=== PATIENT | female | born 1990 | race Two or more races ===

== ENCOUNTER 2023-04-25 19:08 | Emergency (ER) | payer MEDICAID ==
[~2023-04-25] VITALS: Ht 167.6 cm; Wt 90.5 kg
[2023-04-25 19:24] VITALS: BP 139/77; PULSE 58; RESP 14; TEMP 98; O2SAT 98
[2023-04-25] MEDS: LIDOCAINE 1% HCL (LOCAL ANESTH.) INJ 20ML MDV IJ ONE (22:00)
[2023-04-25] MEDS: TETANUS-DIPTH-ACEL PERTUSSIS 0.5ML SYR Tdap IM ONE (23:01)
== END 2023-04-25 23:11 | disposition home or self-care (01) ==
LOC: ER 19:08
DX: S61.011A Laceration without foreign body of right thumb without damage to nail, initial encounter (principal); Z88.6 Allergy status to analgesic agent; W25.XXXA Contact with sharp glass, initial encounter; Y93.89 Activity, other specified; Y92.89 Other specified places as the place of occurrence of the external cause; Y99.8 Other external cause status
CPT/HCPCS: 12001; 90471; 90715; 99283; J2001